=== PATIENT | male | born 1965 | race Caucasian/White ===

== ENCOUNTER 2017-05-23 04:57 | Observation (INO) ==
[2017-05-23 05:46] LABS: Basophils # 0.1 K/mcL (0.0-0.2); Basophils % 1.2 %; Eosinophils # 0.2 K/mcL (0.0-0.6); Eosinophils % 1.7 %; Hemoglobin 17.9 g/dL (12.9-16.9); Immature Granulocytes % 0.3 % (0-4); Lymphocytes # 3.7 K/mcL (0.6-4.6); Lymphocytes % 41.2 %; Mean Corpuscular HGB Conc 33.1 g/dL (31.6-35.5); Mean Corpuscular Hemoglobin 29.4 pg (28.0-33.3); Mean Corpuscular Volume 88.8 fL (83.0-100.0); Mean Platelet Volume 9.7 fL (9.4-12.4); Monocytes # 0.8 K/mcL (0.0-1.3); Monocytes % 9.1 %; Neutrophils # 4.2 K/mcL (1.6-8.9); Platelet Count 261 K/mcL (140-400); Red Blood Count 6.08 M/mcL (4.19-5.50); Red Cell Distribution Width 17.9 % (11.5-14.5); Segmented Neutrophils % 46.5 %
[2017-05-23 05:51] LABS: Acetaminophen < 1.0 mcg/mL (10-30); BUN/Creatinine Ratio 7 (6-26); Blood Urea Nitrogen 7 mg/dL (8-26); Calcium 9.9 mg/dL (8.6-10.8); Carbon Dioxide 18 mEq/L (19-29); Chloride 107 mEq/L (98-109); Ethanol 273 mg/dL (0-10); Glucose 89 mg/dL (70-99); Osmolality,Calculated 285 (280-300); Potassium 3.9 mEq/L (3.5-4.5); Salicylate < 5.0 mg/dL (15-30); Sodium 139 mEq/L (136-145); eGFR For African Americans > 60 (> 60); eGFR For Non-African Americans > 60 (> 60)
[2017-05-23 05:59] LABS: Bilirubin,Urine Negative (Negative); Blood,Urine Negative (Negative); Clarity,Urine Clear (Clear); Color,Urine Yellow (Yellow); Glucose,Urine (UA) Normal (Normal); Ketones,Urine Negative (Negative); Leukocyte Esterase,Urine Negative (Negative); Nitrite,Urine Negative (Negative); Protein,Urine Negative (Neg-Trace); Specific Gravity,Urine 1.012 (1.010-1.025); Urobilinogen,Urine Normal (Normal)
[2017-05-23 06:05] LABS: Amphetamine Screen,Urine Negative ng/mL (Cutoff=1000); Barbiturate Screen,Urine Negative ng/mL (Cutoff=200); Benzodiazepines Screen,Urine Negative ng/mL (Cutoff=200); Cannabinoid Screen,Urine Negative ng/mL (Cutoff = 50); Cocaine Screen,Urine Negative ng/mL (Cutoff= 300); Opiate Screen,Urine Negative ng/mL (Cutoff=300); Phencyclidine Screen,Urine Negative ng/mL (Cutoff=25)
[2017-05-23] MEDS ORDERED: *HR* LORazepam 1 MG TABLET PO ONE (06:58)
--- NOTE | 2017-05-23 07:02 | Emergency Department Note ---
Disposition Clinical Impression: Suicidal ideation Alcohol withdrawal Qualifiers: Complication of substance-induced condition: uncomplicated Qualified Code(s): F10.230 - Alcohol dependence with withdrawal, uncomplicated Depression Qualifiers: Depression Type: other depression Qualified Code(s): F32.89 - Other specified depressive episodes Disposition: Admitted As Inpatient Condition: Good Referrals: NONE,PCP [Primary Care Provider] - Forms: ED Satisfaction Letter Time of Disposition: 18:52 Psych HPI - General Chief Complaint: ED Psychiatric Symptoms Stated Complaint: etoh SI Time Seen by Provider: 05/23/17 06:04 Source: patient Limitations: no limitations Nursing Notes Reviewed: Yes Vital Signs Reviewed: Yes - History of Present Illness HPI Narrative: 51-year-old male presenting to the emergency department with chief complaint of suicidal ideation. He states he is not suicidal multiple times in the past last hospitalization was approximately a year ago. He denies homicidal ideation. He does state he has specific plan he was either going to jump into the river Into traffic. Patient has a long-standing history of alcohol abuse. Blood work and urine completed before I assessed the patient. The patient's ethanol level was 273. Patient states he drinks a sixpack a day. In the room patient is visibly shaking. He states he is concerned he is going through withdrawals. Patient states he does not want to live anymore due to being homeless and having alcohol abuse issue. Patient denies visual or auditory hallucinations at this time. Denies any ingestion other than alcohol prior to arrival. - Related Data Home Medications Medication Instructions Recorded Confirmed Naproxen [Naprosyn] 375 mg PO BID 08/05/15 12/18/15 OLANZapine [Zyprexa Zydis] 30 mg PO HS 08/05/15 12/18/15 HydrOXYzine Pamoate [Vistaril] 25 mg PO TID 12/18/15 12/18/15 Previous Rx's Medication Instructions Recorded LevETIRAcetam [Keppra] 500 mg PO BID #60 tablet 04/21/15 OLANZapine [Zyprexa Zydis] 30 mg PO HS tab.rapdis 08/05/15 Pramoxine [Proctofoam] 15 gm TP TID #1 foam 12/23/15 Naproxen [Naprosyn] 500 mg PO BID 10 Days tablet 02/25/16 Cyclobenzaprine [Flexeril] 10 mg PO TID PRN #9 tablet 06/16/16 predniSONE [Prednisone] 20 mg PO BID #8 tablet 06/16/16 Allergies Allergy/AdvReac Type Severity Reaction Status Date / Time Penicillins [PCN] Allergy See Verified 12/18/15 07:42 Comments lidocaide Allergy Rash Uncoded 05/28/15 07:36 All systems ED: reviewed and negative except as stated. Constitutional: Denies: fever, chills, weakness Eyes: Reports: as per HPI ENT ED: Reports: as per HPI Cardiovascular: Denies: chest pain, palpitations Respiratory: Denies: cough, dyspnea, wheezes Gastrointestinal: Denies: abdominal pain, nausea, vomiting Genitourinary: Reports: as per HPI Musculoskeletal: Reports: as per HPI Integumentary: Reports: as per HPI Neurological: Denies: weakness, numbness, paresthesias Psychiatric: Reports: suicidal thoughts. Denies: homicidal thoughts, auditory hallucinations, visual hallucinations Endocrine: Reports: as per HPI Hematological/Lymphatic: Reports: as per HPI Allergic/Immunologic: Reports: as per HPI Past Medical History - Past Medical History Attestation: Yes The following information was validated with the patient. Medical history: Reports: hepatitis, hypertension, seizures Surgical history: Reports: orthopedic, other Psychiatric history: Reports: bipolar, depression, previous psychiatric hospitalization - Social History Smoking Status: Current every day smoker Smokeless Tobacco Status: No Alcohol use: Reports: none Drug use: Reports: none Physical Exam - General Limitations: no limitations General appearance: alert, in no apparent distress - Head Head exam: atraumatic, normocephalic, normal inspection - Eye Eye exam: Present: normal appearance. Absent: scleral icterus - Chest Chest inspection: Present: normal inspection, symmetric chest wall rise. Absent : tenderness - Respiratory Respiratory exam: Present: normal lung sounds bilaterally. Absent: respiratory distress, wheezes - Cardiovascular Cardiovascular exam: Present: regular rate, normal rhythm, normal heart sounds - Abdominal Exam Abdominal exam: Present: soft, Non-Tender. Absent: distention, guarding, rebound - Extremities Exam Extremities exam: Present: normal inspection, full ROM - Neurological Exam Neurological exam: Present: alert, oriented X3 - Psychiatric Psychiatric exam: Present: suicidal ideation - Skin Skin exam: Present: warm, intact Course Course Narrative: 51-year-old male present emergency department. Suicidal ideation. At this time alcohol was too high to contact psychiatric. We will reassess the patient and wait until he is clinically sober. We will then return to psychiatric services at that time. Disposition pending determining psychiatric results. - Reevaluation(s) Reevaluation #1: Patient spoke with [facility] and they feel that he needs to be admitted for detox support before he is treated in the psychiatric side. Spoke with the hospitalist Kyrie Cdi who agrees to accept the patient at this time. Time: 18:51 Vital Signs Temperature 97.3 F L 05/23/17 04:57 Pulse Rate 78 05/23/17 04:57 Respiratory Rate 20 05/23/17 04:57 Blood Pressure 130/77 05/23/17 04:57 O2 Sat by Pulse Oximetry 95 05/23/17 04:57 Temperature 97.3 F L 05/23/17 04:57 Pulse Rate 75 05/23/17 17:15 Respiratory Rate 16 05/23/17 17:15 Blood Pressure 122/76 05/23/17 17:15 O2 Sat by Pulse Oximetry 96 05/23/17 17:15 Oxygen Delivery Oxygen Delivery Room Air Psych - Lab Data Result diagrams: 05/23/17 05:25 05/23/17 05:25 Lab Results 05/23/17 05/23/17 05/23/17 Range/Units 05:25 05:25 05:45 WBC 9.0 (4.3-11.1) K/mcL RBC 6.08 H (4.19-5.50) M/mcL Hgb 17.9 H (12.9-16.9) g/dL Hct 54.0 H (37.5-50.1) % MCV 88.8 (83.0-100.0) fL MCH 29.4 (28.0-33.3) pg MCHC 33.1 (31.6-35.5) g/dL RDW 17.9 H (11.5-14.5) % Plt Count 261 (140-400) K/mcL MPV 9.7 (9.4-12.4) fL Immature Gran % 0.3 (0-4) % Seg Neutrophils % 46.5 % Lymphocytes % 41.2 % Monocytes % 9.1 % Eosinophils % 1.7 % Basophils % 1.2 % Neutrophils # 4.2 (1.6-8.9) K/mcL Lymphocytes # 3.7 (0.6-4.6) K/mcL Monocytes # 0.8 (0.0-1.3) K/mcL Eosinophils # 0.2 (0.0-0.6) K/mcL Basophils # 0.1 (0.0-0.2) K/mcL Sodium 139 (136-145) mEq/L Potassium 3.9 (3.5-4.5) mEq/L Chloride 107 (98-109) mEq/L Carbon Dioxide 18 L (19-29) mEq/L BUN 7 L (8-26) mg/dL Creatinine 0.97 (0.72-1.25) mg/dL Est GFR ( Amer) > 60 (> 60) Est GFR (Non-Af Amer) > 60 (> 60) BUN/Creatinine Ratio 7 (6-26) Glucose 89 (70-99) mg/dL Calculated Osmolality 285 (280-300) Calcium 9.9 (8.6-10.8) mg/dL Urine Color Yellow (Yellow) Urine Clarity Clear (Clear) Urine pH 6.0 (5.0-8.0) pH Units Ur Specific [place] 1.012 (1.010-1.025) Urine Protein Negative (Neg-Trace) mg/dL Urine Glucose (UA) Normal (Normal) mg/dL Urine Ketones Negative (Negative) mg/dL Urine Blood Negative (Negative) Urine Nitrite Negative (Negative) Urine Bilirubin Negative (Negative) Urine Urobilinogen Normal (Normal) mg/dL Ur Leukocyte Esterase Negative (Negative) Ur Culture Indicated? NO (NO) Salicylates < 5.0 L (15-30) mg/dL Urine Opiates Screen (Dgpfjf=993) ng/mL Acetaminophen < 1.0 L (10-30) mcg/mL Ur Barbiturates Screen (Escjtf=994) ng/mL Ur Phencyclidine Scrn (Cutoff=25) ng/mL Ur Amphetamines Screen (Dcbocc=9318) ng/mL U Benzodiazepines Scrn (Rakggp=670) ng/mL Urine Cocaine Screen (Cutoff= 300) ng/mL U Marijuana (THC) Screen (Cutoff = 50) ng/mL Ethyl Alcohol 273 H (0-10) mg/dL 05/23/17 05/23/17 05/23/17 Range/Units 05:45 12:02 15:47 WBC (4.3-11.1) K/mcL RBC (4.19-5.50) M/mcL Hgb (12.9-16.9) g/dL Hct (37.5-50.1) % MCV (83.0-100.0) fL MCH (28.0-33.3) pg MCHC (31.6-35.5) g/dL RDW (11.5-14.5) % Plt Count (140-400) K/mcL MPV (9.4-12.4) fL Immature Gran % (0-4) % Seg Neutrophils % % Lymphocytes % % Monocytes % % Eosinophils % % Basophils % % Neutrophils # (1.6-8.9) K/mcL Lymphocytes # (0.6-4.6) K/mcL Monocytes # (0.0-1.3) K/mcL Eosinophils # (0.0-0.6) K/mcL Basophils # (0.0-0.2) K/mcL Sodium (136-145) mEq/L Potassium (3.5-4.5) mEq/L Chloride (98-109) mEq/L Carbon Dioxide (19-29) mEq/L BUN (8-26) mg/dL Creatinine (0.72-1.25) mg/dL Est GFR ( Amer) (> 60) Est GFR (Non-Af Amer) (> 60) BUN/Creatinine Ratio (6-26) Glucose (70-99) mg/dL Calculated Osmolality (280-300) Calcium (8.6-10.8) mg/dL Urine Color (Yellow) Urine Clarity (Clear) Urine pH (5.0-8.0) pH Units Ur Specific [place] (1.010-1.025) Urine Protein (Neg-Trace) mg/dL Urine Glucose (UA) (Normal) mg/dL Urine Ketones (Negative) mg/dL Urine Blood (Negative) Urine Nitrite (Negative) Urine Bilirubin (Negative) Urine Urobilinogen (Normal) mg/dL Ur Leukocyte Esterase (Negative) Ur Culture Indicated? (NO) Salicylates (15-30) mg/dL Urine Opiates Screen Negative (Oossta=545) ng/mL Acetaminophen (10-30) mcg/mL Ur Barbiturates Screen Negative (Heyvyv=864) ng/mL Ur Phencyclidine Scrn Negative (Cutoff=25) ng/mL Ur Amphetamines Screen Negative (Ybzxab=3495) ng/mL U Benzodiazepines Scrn Negative (Woorra=548) ng/mL Urine Cocaine Screen Negative (Cutoff= 300) ng/mL U Marijuana (THC) Screen Negative (Cutoff = 50) ng/mL Ethyl Alcohol 129 H 48 H (0-10) mg/dL Psychiatric Medical Clearance - Medical Clearance Checklist Medical History: Depression (Chronic) Suicidal ideation (Acute) Alcohol intoxication (Resolved) Mood disorder (Chronic) Alcohol dependence (Chronic) Cannabis abuse (Acute) Seizure disorder (Chronic) Hepatitis C (Chronic) Alcohol abuse with alcohol-induced mental disorder (Acute) Alcohol abuse (Inactive) Alcohol abuse (Inactive) Alcohol abuse (Inactive) Alcohol use disorder, severe, dependence (Inactive) Anxiety (Inactive) Back pain (Inactive) Back pain (Inactive) Cellulitis (Inactive) Chest pain (Inactive) Dental abscess (Inactive) Encounter for routine adult medical exam with abnormal findings (Inactive) Epileptic seizure (Inactive) Fever (Inactive) Hemorrhoids (Inactive) History of seizure (Inactive) History of seizure disorder (Inactive) Homeless single person (Inactive) Hyponatremia (Inactive) Lumbar back pain (Inactive) Lumbar back sprain (Inactive) Lumbar radiculopathy (Inactive) Medically noncompliant (Inactive) Noncompliance w/medication treatment due to intermit use of medication (Inactive ) Psoriasis (a type of skin inflammation) (Inactive) Rash (Inactive) Seizure (Inactive) Seizure (Inactive) Seizure (Inactive) Seizure (Inactive) Sprain of ligaments of cervical spine (Inactive) Suicidal ideation (Inactive) Urticaria (Inactive) No Social History Section defined Current Vitals: Last Vital Signs Temp 97.3 F L 05/23/17 04:57 Pulse 75 05/23/17 17:15 Resp 16 05/23/17 17:15 BP 122/76 05/23/17 17:15 Pulse Ox 96 05/23/17 17:15 Psychiatric Lab Panel: Drug Levels and Toxicity 05/23/17 05/23/17 05/23/17 05:25 05:45 12:02 Urine Opiates Screen Negative Acetaminophen < 1.0 L Ur Barbiturates Screen Negative Ur Phencyclidine Scrn Negative Ur Amphetamines Screen Negative U Benzodiazepines Scrn Negative Urine Cocaine Screen Negative U Marijuana (THC) Screen Negative Ethyl Alcohol 273 H 129 H 05/23/17 15:47 Urine Opiates Screen Acetaminophen Ur Barbiturates Screen Ur Phencyclidine Scrn Ur Amphetamines Screen U Benzodiazepines Scrn Urine Cocaine Screen U Marijuana (THC) Screen Ethyl Alcohol 48 H Abnormal Labs: Abnormal lab results RBC 6.08 M/mcL (4.19-5.50) H 05/23/17 05:25 Hgb 17.9 g/dL (12.9-16.9) H 05/23/17 05:25 Hct 54.0 % (37.5-50.1) H 05/23/17 05:25 RDW 17.9 % (11.5-14.5) H 05/23/17 05:25 Carbon Dioxide 18 mEq/L (19-29) L 05/23/17 05:25 BUN 7 mg/dL (8-26) L 05/23/17 05:25 Salicylates < 5.0 mg/dL (15-30) L 05/23/17 05:25 Acetaminophen < 1.0 mcg/mL (10-30) L 05/23/17 05:25 Ethyl Alcohol 48 mg/dL (0-10) H 05/23/17 15:47 Statement of Medical Clearance: I have evaluated the patient, reviewed diagnostic information, and certify that the patient's medical condition is sufficiently stable that transfer to the psychiatric unit does not pose a significant risk of deterioration. Attestation Statement - Attestation Attestation: I examined this patient and my medical decision-making was reviewed with the Resident Physician. I agree with the documented findings, disposition and treatment plan as described except to the extent set forth below. Patient to ED with suicidal ideation and alcohol intoxication. Long-standing history of the same. Patient still and is to be and suicidal on my evaluation. Plan. Medical clearance and evaluation by 1A. Patient saw resting comfortably at 1500. Repeat alcohol still pending. The patient medically cleared at this time 1645.
[2017-05-23] MEDS ORDERED: Ondansetron 4 MG/2 ML VIAL IVP PRN (20:49)
[2017-05-23] MEDS ORDERED: Acetaminophen 325 MG TABLET PO PRN (20:49)
[2017-05-23] MEDS ORDERED: Naloxone 0.4 MG/ML INJ IVP PRN (20:49)
[2017-05-23] MEDS ORDERED: *HR* LORazepam 2 MG/ML VIAL IVP PRN ×3 (20:49)
[2017-05-23] MEDS ORDERED: Albuterol 2.5 MG/3 ML NEBULIZER IH PRN (20:53)
--- NOTE | 2017-05-23 20:55 | Internal Med History&Physical ---
Date of Encounter: 05/23/17 Time of Encounter: 20:54 Assessment and Plan (1) Suicidal ideation Current visit: Yes Status: Acute Patient reports active suicidal ideation with the plan, he has had prior suicide ideations, his current state is being driven by major depression, he denies homicidal ideation, will admit for inpatient psychiatry consult, cannot leave AMA until cleared by psychiatry, social work consult regarding his homeless situation (2) Depression Current visit: Yes Status: Chronic Related to alcohol use and homelessness, this is the underlying cause of his suicidal ideation, psychiatry consult appreciated Qualifiers: Depression Type: major depressive disorder Major depression recurrence: recurrent Active/Remission status: currently active Major depression episode severity: severe Psychotic features: without psychotic features Qualified Code(s): F33.2 - Major depressive disorder, recurrent severe without psychotic features (3) Mood disorder Current visit: Yes Status: Chronic Continue home medications (4) Alcohol dependence Current visit: Yes Status: Chronic Significant history of alcohol use and dependency, his alcohol level on admission was 273 in his last drink was about midnight on 05/23, we will institute alcohol withdrawal protocol, he has been counseled on cessation Qualifiers: Substance use status: with intoxication Complication of substance-induced condition: uncomplicated Qualified Code(s): F10.220 - Alcohol dependence with intoxication, uncomplicated (5) Seizure disorder Current visit: Yes Status: Chronic Continue Keppra with aspiration, fall and seizure precautions Internal Medicine - H&P: HPI Chief complaint: wanting to do self harm Admitted From: Emergency Dept Plans for Post Hospital Care: Home History of present illness: Mr. Guzman is a 51 year old male with a history of alcohol dependency and prior suicidal ideation who was brought to the ER via EMS for suicidal ideation. He reports being well until today when he started having ideas about ending his life by jumping in the middle of traffic. Patient is very worried about his homeless situation and he reports this as being the reason why he wants end his life. EMS was called and he told them on arrival that he has had the ideation for about 3 weeks now but they have been worse overnight. He reports active alcohol use, about 6-12 packs of beer daily, denies hot liquor. He reports being sober for about 14 months without any problems but is unable to tell why he went back to drinking. He denies severe withdrawals in the past related to hallucinations, seizures or ICU care. His last alcohol intake was at midnight. Past Med Surg Social Fam HX - Past Medical History Medical history: hepatitis, hypertension, seizures, other Psychiatric history: bipolar, depression, schizophrenia, previous psychiatric hospitalization - Past Surgical History Surgical History: orthopedic, other - Social History Smoking Status: Current every day smoker Smokeless Tobacco Status: No Alcohol use: none Drug use: none - Family History Father Adopted: No Living Status: Mother Adopted: No Living Status: Hx Family Cardiac Disorders: Yes Hx Family Cancer: Yes Hx Family Neurologic Disorders: Yes (3 CVAs over lifetime) Internal Medicine - H&P: Meds LevETIRAcetam [Keppra] 500 mg PO BID #60 tablet 04/21/15 [Rx] HydrOXYzine Pamoate [Vistaril] 50 mg PO TID 12/18/15 [History] Ergocalciferol (VITAMIN D2) [Vitamin D] 400 unit PO DAILY 05/23/17 [History] OLANZapine [Zyprexa] 30 mg PO HS 05/23/17 [History] 3 Allergy/AdvReac Type Severity Reaction Status Date / Time Penicillins [PCN] Allergy See Verified 12/18/15 07:42 Comments lidocaide Allergy Rash Uncoded 05/28/15 07:36 All Systems PM: A 10-system review of systems was performed and is negative for pertinent findings except as documented above in the HPI. - Constitutional Vitals: Temp Pulse Resp BP Pulse Ox 97.4 F L 60 12 152/86 95 05/23/17 20:52 05/23/17 20:52 05/23/17 20:52 05/23/17 20:52 05/23/17 20:52 GENERAL: Adult male, lying in bed, Alert, not in obvious pain or distress HEENT: NC/AT, EOMI, PERRLA, anicteric sclera, normal conjunctiva, supple, clear nares, moist mucous membranes, RESP: Lungs are clear to auscultation bilaterally, with good AE, no crackles or wheeze CARDIO: Normal heart sounds with RRR, no murmurs, no JVD, no ankle edema GI: Soft, full, no tenderness, no organomegaly felt, normal bowel sounds heard MUSCULOSKELETAL: Grossly normal movements bilaterally, no deformities noted, NEUROLOGIC: CN 2-12 intact grossly. No gross motor/sensory deficit appreciated, PSYCHIATRY: AAO x 3. Mood is fair SKIN: no skin rash or ulcers noted Internal Med - H&P Results - Labs CBC & Chem 7: 05/23/17 05:25 05/23/17 05:25
[2017-05-23] MEDS: OLANZapine 10 MG TAB.RAPDIS PO SCH (23:46)
[2017-05-23] MEDS: Nicotine 14 MG PATCH.TD24 TD SCH (23:46)
[2017-05-23] MEDS: hydrOXYzine pamoate 25 MG CAPSULE PO SCH (23:46)
[2017-05-23] MEDS: levETIRAcetam 250 MG TABLET PO SCH (23:46)
[2017-05-24 04:00] LABS: Hematocrit 46.7 % (37.5-50.1); Mean Corpuscular HGB Conc 33.4 g/dL (31.6-35.5); Mean Corpuscular Hemoglobin 29.4 pg (28.0-33.3); Mean Corpuscular Volume 87.9 fL (83.0-100.0); Platelet Count 215 K/mcL (140-400); Red Blood Count 5.31 M/mcL (4.19-5.50); Red Cell Distribution Width 16.8 % (11.5-14.5)
[2017-05-24 04:01] LABS: Hemoglobin 15.6 g/dL (12.9-16.9)
[2017-05-24 04:21] LABS: Alanine Aminotransferase 48 Units/L (0-55); Albumin 3.2 g/dL (3.5-5.0); Albumin/Globulin Ratio 0.9 (1.1-2.2); Alkaline Phosphatase 48 Units/L (38-126); Aspartate Amino Transferase 52 Units/L (5-34); BUN/Creatinine Ratio 15 (6-26); Bilirubin,Total 0.7 mg/dL (0.2-1.2); Blood Urea Nitrogen 11 mg/dL (8-26); Calcium 9.1 mg/dL (8.6-10.8); Carbon Dioxide 23 mEq/L (19-29); Chloride 105 mEq/L (98-109); Globulin 3.7 g/dL (2.4-3.5); Glucose 88 mg/dL (70-99); Magnesium 1.7 mg/dL (1.6-2.6); Osmolality,Calculated 281 (280-300); Phosphorous 2.8 mg/dL (2.3-4.7); Potassium 3.6 mEq/L (3.5-4.5); Sodium 136 mEq/L (136-145); Total Protein 6.9 g/dL (6.0-8.3); eGFR For African Americans > 60 (> 60); eGFR For Non-African Americans > 60 (> 60)
--- NOTE | 2017-05-24 08:16 | Psychiatry History & Physical ---
Date of Encounter: 05/24/17 Time of Encounter: 08:11 History of Present Illness Patient Stated Chief Complaint: suicidal ideation Medicare Admission Attestation: For traditional Medicare patients the provided hospital inpatient services are reasonable and necessary and in the case of services not specified as inpatient -only under 42 CFR 419.22 (n), that they are appropriately provided as inpatient services in accordance 42 CFR 412.3. For Critical Access Hospital the patient may reasonably be expected to be discharged or transferred to a hospital within 96 hours after admission to the Critical Access Hospital. Admitted From: Home Plans for Post Hospital Care: Transfer Inp Rehab Fac History of Present Illness: Mr. Guzman is a 51 year old male who was admitted secondary to SI. Admitted to a medical floor upon arrival due to elevated BAL, recent heavy alcohol use, and history of severe alcohol withdrawal. On eval client denies significant alcohol withdrawal symptoms at this time but reports a history of DTs and seizures. Thirty plus years of heavy drinking. Currently consuming a twelve pack daily. Multiple rehab and sober living attempts. Wants to stop drinking but always returns to it. Denies any other substances of abuse. Homeless. No family supports. Has been living with friends and in shelters. Has historically done well at [facility] and wants to go back there. SI seems tied to AOD use but he does have a historical diagnosis of Bipolar Disorder and suicide attempts. Previous inpatient admissions as well. Follows with an outpatient Psychiatrist in [place], [place] and claims he is prescribed and compliant with Zyprexa. Past Med Surg Social Fam HX - Past Medical History Medical history: hepatitis, hypertension, seizures, other - Past Psychiatric History Psychiatric history: Reports: anxiety, bipolar, prior suicide attempt, previous psychiatric hospitalization Family psychiatric history: Yes Family History of Suicide: None - Past Surgical History Surgical History: orthopedic, other - Social History Smoking Status: Current every day smoker Smokeless Tobacco Status: No Alcohol use: none Drug use: none - Family History Father Adopted: No Living Status: Age at : 64 Cause of : [place] Hx Family Cardiac Disorders: Yes ([place]) Mother Adopted: No Living Status: Hx Family Cardiac Disorders: Yes Hx Family Cancer: Yes Hx Family Neurologic Disorders: Yes (3 CVAs over lifetime) Medications & Allergies LevETIRAcetam [Keppra] 500 mg PO BID #60 tablet 04/21/15 [Rx] HydrOXYzine Pamoate [Vistaril] 50 mg PO TID 12/18/15 [History] Ergocalciferol (VITAMIN D2) [Vitamin D] 400 unit PO DAILY 05/23/17 [History] OLANZapine [Zyprexa] 30 mg PO HS 05/23/17 [History] 3 Allergy/AdvReac Type Severity Reaction Status Date / Time Penicillins [PCN] Allergy See Verified 12/18/15 07:42 Comments lidocaide Allergy Rash Uncoded 05/28/15 07:36 Review of Systems Constitutional: Denies: fever, chills, weakness, weight change Eyes: Denies: eye pain, vision change Ears, Nose, Throat: Denies: ear pain, throat pain, dental pain, hearing loss, congestion Cardiovascular: Denies: chest pain, palpitations, dyspnea on exertion Respiratory: Denies: cough, dyspnea, wheezes Gastrointestinal: Denies: abdominal pain, nausea, vomiting, diarrhea, constipation Genitourinary male: Denies: urgency, dysuria, frequency, genital lesions Genitourinary female: Denies: urgency, dysuria, frequency, abnormal menses, dyspareunia Musculoskeletal: Denies: joint swelling, joint pain Integumentary: Denies: rash, lesions, pruritus Neurological: Denies: headache, weakness, numbness, memory loss Endocrine: Denies: fatigue, heat or cold intolerance Hematologic/Lymphatic: Denies: easy bruising, lymphadenopathy Allergic/Immunologic: Denies: urticaria, itchy eyes Mental Status Exam Patient orientation: Yes Person, Yes Time, Yes Place Level of alertness: Alert Patient appearance: Appropriate Behavior: calm, cooperative Psychomotor activity: Normal Eye contact: Maintains Eye Contact Mood description: Depressed Affect description: congruent with mood Speech pattern: Normal rate, Normal rhythm, Normal tone Speech volume: Normal Thought process: Linear Thought content: Yes Suicidal ideation, No Homicidal ideation, No Overt delusions Perceptual disturbances: No Auditory hallucinations, No Visual hallucinations Attention span: Capable of Focused Attention Memory description: Grossly Intact Patient reliability: Questionable Historian Intelligence estimate: Average Judgment: Limited Insight: Minimal Exam - HEENT Head exam IM: Present: atraumatic Eye exam IM: Present: EOMI ENT exam IM: Present: mucous membranes moist - Neurological Neurological exam IM: Present: alert, oriented X3 - Respiratory Respiratory exam IM: Present: CTAB - GI/Abdominal GI/Abdominal exam IM: Present: normal bowel sounds - Extremities Extremities exam IM: Present: full ROM - Skin Skin exam IM: Present: normal color Results - Vital Signs Vital signs: Temp Pulse Resp BP Pulse Ox 97.9 F 52 16 142/90 95 05/24/17 08:07 05/24/17 08:07 05/24/17 08:07 05/24/17 08:07 05/24/17 08:07 - Labs Labs: Laboratory Last Values WBC 6.7 K/mcL (4.3-11.1) 05/24/17 03:50 RBC 5.31 M/mcL (4.19-5.50) 05/24/17 03:50 Hgb 15.6 g/dL (12.9-16.9) D 05/24/17 03:50 Hct 46.7 % (37.5-50.1) 05/24/17 03:50 MCV 87.9 fL (83.0-100.0) 05/24/17 03:50 MCH 29.4 pg (28.0-33.3) 05/24/17 03:50 MCHC 33.4 g/dL (31.6-35.5) 05/24/17 03:50 RDW 16.8 % (11.5-14.5) H 05/24/17 03:50 Plt Count 215 K/mcL (140-400) 05/24/17 03:50 MPV 10.0 fL (9.4-12.4) 05/24/17 03:50 Immature Gran % 0.3 % (0-4) 05/23/17 05:25 Seg Neutrophils % 46.5 % 05/23/17 05:25 Lymphocytes % 41.2 % 05/23/17 05:25 Monocytes % 9.1 % 05/23/17 05:25 Eosinophils % 1.7 % 05/23/17 05:25 Basophils % 1.2 % 05/23/17 05:25 Neutrophils # 4.2 K/mcL (1.6-8.9) 05/23/17 05:25 Lymphocytes # 3.7 K/mcL (0.6-4.6) 05/23/17 05:25 Monocytes # 0.8 K/mcL (0.0-1.3) 05/23/17 05:25 Eosinophils # 0.2 K/mcL (0.0-0.6) 05/23/17 05:25 Basophils # 0.1 K/mcL (0.0-0.2) 05/23/17 05:25 Sodium 136 mEq/L (136-145) 05/24/17 03:50 Potassium 3.6 mEq/L (3.5-4.5) 05/24/17 03:50 Chloride 105 mEq/L (98-109) 05/24/17 03:50 Carbon Dioxide 23 mEq/L (19-29) 05/24/17 03:50 BUN 11 mg/dL (8-26) 05/24/17 03:50 Creatinine 0.73 mg/dL (0.72-1.25) 05/24/17 03:50 Est GFR ( Amer) > 60 (> 60) 05/24/17 03:50 Est GFR (Non-Af Amer) > 60 (> 60) 05/24/17 03:50 BUN/Creatinine Ratio 15 (6-26) 05/24/17 03:50 Glucose 88 mg/dL (70-99) 05/24/17 03:50 Calculated Osmolality 281 (280-300) 05/24/17 03:50 Calcium 9.1 mg/dL (8.6-10.8) 05/24/17 03:50 Phosphorus 2.8 mg/dL (2.3-4.7) 05/24/17 03:50 Magnesium 1.7 mg/dL (1.6-2.6) 05/24/17 03:50 Total Bilirubin 0.7 mg/dL (0.2-1.2) 05/24/17 03:50 AST 52 Units/L (5-34) H 05/24/17 03:50 ALT 48 Units/L (0-55) 05/24/17 03:50 Alkaline Phosphatase 48 Units/L (38-126) 05/24/17 03:50 Serum Total Protein 6.9 g/dL (6.0-8.3) 05/24/17 03:50 Albumin 3.2 g/dL (3.5-5.0) L 05/24/17 03:50 Globulin 3.7 g/dL (2.4-3.5) H 05/24/17 03:50 Albumin/Globulin Ratio 0.9 (1.1-2.2) L 05/24/17 03:50 Urine Color Yellow (Yellow) 05/23/17 05:45 Urine Clarity Clear (Clear) 05/23/17 05:45 Urine pH 6.0 pH Units (5.0-8.0) 05/23/17 05:45 Ur Specific [place] 1.012 (1.010-1.025) 05/23/17 05:45 Urine Protein Negative mg/dL (Neg-Trace) 05/23/17 05:45 Urine Glucose (UA) Normal mg/dL (Normal) 05/23/17 05:45 Urine Ketones Negative mg/dL (Negative) 05/23/17 05:45 Urine Blood Negative (Negative) 05/23/17 05:45 Urine Nitrite Negative (Negative) 05/23/17 05:45 Urine Bilirubin Negative (Negative) 05/23/17 05:45 Urine Urobilinogen Normal mg/dL (Normal) 05/23/17 05:45 Ur Leukocyte Esterase Negative (Negative) 05/23/17 05:45 Ur Culture Indicated? NO (NO) 05/23/17 05:45 Salicylates < 5.0 mg/dL (15-30) L 05/23/17 05:25 Urine Opiates Screen Negative ng/mL (Srjkdw=374) 05/23/17 05:45 Acetaminophen < 1.0 mcg/mL (10-30) L 05/23/17 05:25 Ur Barbiturates Screen Negative ng/mL (Rwyroa=917) 05/23/17 05:45 Ur Phencyclidine Scrn Negative ng/mL (Cutoff=25) 05/23/17 05:45 Ur Amphetamines Screen Negative ng/mL (Xukeug=1956) 05/23/17 05:45 U Benzodiazepines Scrn Negative ng/mL (Zyqknn=480) 05/23/17 05:45 Urine Cocaine Screen Negative ng/mL (Cutoff= 300) 05/23/17 05:45 U Marijuana (THC) Screen Negative ng/mL (Cutoff = 50) 05/23/17 05:45 Ethyl Alcohol 48 mg/dL (0-10) H 05/23/17 15:47 Assessment and Plan (1) Depression Current visit: Yes Status: Chronic Plan: Admit inpatient for safety and stabilization, Close observation, Suicide Precautions per unit protocol, Encourage participation in unit milieu, Group Therapy, Monitor sleep, Monitor appetite Risks, benefits, side effects, alternatives discussed w/pt: Yes Patient agreeable to treatment: Yes Plans for Post Hospital Care: Transfer Inp Rehab Fac Estimated Length of Stay (Days) : 4 Qualifiers: Depression Type: major depressive disorder Major depression recurrence: recurrent Active/Remission status: currently active Major depression episode severity: severe Psychotic features: without psychotic features Qualified Code(s): F33.2 - Major depressive disorder, recurrent severe without psychotic features
--- NOTE | 2017-05-24 08:20 | Internal Med Progress Note ---
<Alex Shahid - Last Filed: 05/24/17 14:52> Date of Encounter: 05/24/17 Time of Encounter: 08:20 - Assessment and plan (1) Suicidal ideation Current Visit: Yes Status: Acute Assessment and plan: Continues to have suicidal ideation with intent and plan States plans to jump off a bridge or in front of a truck States this is secondary to homelessness Psychiatry on board and dates patient can be transferred after medically stable : alcohol withdrawal (2) Alcohol intoxication Current Visit: Yes Status: Acute Assessment and plan: CIWA 1 no temors on exam. normal HR, denies hallucination continue to monitor continue thiamine, folic acid Qualifiers: Complication of substance-induced condition: uncomplicated Qualified Code(s ): F10.920 - Alcohol use, unspecified with intoxication, uncomplicated (3) Depression Current Visit: Yes Status: Chronic Assessment and plan: Reports SI. psych on board transfer to after stable from alcohol withdrawal. Qualifiers: Depression Type: major depressive disorder Major depression recurrence: recurrent Active/Remission status: currently active Major depression episode severity: severe Psychotic features: without psychotic features Qualified Code(s): F33.2 - Major depressive disorder, recurrent severe without psychotic features (4) Seizure disorder Current Visit: Yes Status: Chronic Assessment and plan: continue keppra. (5) DVT prophylaxis Current Visit: Yes Status: Acute Assessment and plan: Heparin subcutaneous - Subjective Interval history: Admitted for suicidal ideations and alcohol withdrawal. Patient continues to report suicidal ideation with plan of jumping off a bridge and drug or jumping in front of a truck. Patient states initially when he came in he had tremors. Denies confusion, heart palpitations, chest pain, visual or auditory hallucinations. - Constitutional Vitals: Temp Pulse Resp BP Pulse Ox 97.9 F 52 16 142/90 95 05/24/17 08:07 05/24/17 08:07 05/24/17 08:07 05/24/17 08:07 05/24/17 08:07 - Other Additional findings: General: without distress HEENT: Head atraumatic, normocephalic, EOMI, PERRL, Heart: Regular rate and rhythm with no murmur Lungs: Clear to auscultation bilaterally Abdomen: Soft nontender, nondistended positive bowel sounds Skin: warm and dry Extremities: Absent pedal edema, Vascular: Pedal and radial pulses 2 out of 4 Internal Medicine: Result - Labs CBC & Chem 7: 05/24/17 03:50 05/24/17 03:50 Labs: Short CBC 05/24/17 Range/Units 03:50 WBC 6.7 (4.3-11.1) K/mcL Hgb 15.6 D (12.9-16.9) g/dL Hct 46.7 (37.5-50.1) % Plt Count 215 (140-400) K/mcL BMP 05/24/17 03:50 Sodium 136 Potassium 3.6 Chloride 105 Carbon Dioxide 23 BUN 11 Creatinine 0.73 Glucose 88 Calcium 9.1 Liver Function 05/24/17 Range/Units 03:50 Total Bilirubin 0.7 (0.2-1.2) mg/dL AST 52 H (5-34) Units/L ALT 48 (0-55) Units/L Alkaline Phosphatase 48 (38-126) Units/L Albumin 3.2 L (3.5-5.0) g/dL Consult Discharge Plan - Plan Referrals: NONE,PCP [Primary Care Provider] - <Rowdy Charles P - Last Filed: 05/24/17 18:54> Date of Encounter: 05/24/17 - Constitutional Vitals: Temp Pulse Resp BP Pulse Ox 97.6 F 63 15 130/78 96 05/24/17 16:57 05/24/17 16:57 05/24/17 16:57 05/24/17 16:57 05/24/17 16:57 Internal Medicine: Result - Labs CBC & Chem 7: 05/24/17 03:50 05/24/17 03:50 Labs: Short CBC 05/24/17 Range/Units 03:50 WBC 6.7 (4.3-11.1) K/mcL Hgb 15.6 D (12.9-16.9) g/dL Hct 46.7 (37.5-50.1) % Plt Count 215 (140-400) K/mcL BMP 05/24/17 03:50 Sodium 136 Potassium 3.6 Chloride 105 Carbon Dioxide 23 BUN 11 Creatinine 0.73 Glucose 88 Calcium 9.1 Liver Function 05/24/17 Range/Units 03:50 Total Bilirubin 0.7 (0.2-1.2) mg/dL AST 52 H (5-34) Units/L ALT 48 (0-55) Units/L Alkaline Phosphatase 48 (38-126) Units/L Albumin 3.2 L (3.5-5.0) g/dL - Attending Attestation I examined this patient and my medical decision-making was reviewed with the Resident Physician. I agree with the documented findings, disposition and treatment plan as described except to the extent set forth below.
--- NOTE | 2017-05-24 08:21 | Consult Note ---
Date of Encounter: 05/24/17 Time of Encounter: 08:19 Assessment & Recommendation (1) Depression Current visit: Yes Status: Chronic Assessment & Recommendation: Continue home meds for now. Admit to inpatient psych when medically stable from acute withdrawal. Qualifiers: Depression Type: major depressive disorder Major depression recurrence: recurrent Active/Remission status: currently active Major depression episode severity: severe Psychotic features: without psychotic features Qualified Code(s): F33.2 - Major depressive disorder, recurrent severe without psychotic features History of Present Illness Requesting Physician: Ashley Flores CNP Reason for consult: suicidal ideation History of present illness: Mr. Guzman is a 51 year old male who was admitted secondary to SI. Admitted to a medical floor upon arrival due to elevated BAL, recent heavy alcohol use, and history of severe alcohol withdrawal. On eval client denies significant alcohol withdrawal symptoms at this time but reports a history of DTs and seizures. Thirty plus years of heavy drinking. Currently consuming a twelve pack daily. Multiple rehab and sober living attempts. Wants to stop drinking but always returns to it. Denies any other substances of abuse. Homeless. No family supports. Has been living with friends and in shelters. Has historically done well at [facility] and wants to go back there. SI seems tied to AOD use but he does have a historical diagnosis of Bipolar Disorder and suicide attempts. Previous inpatient admissions as well. Follows with an outpatient Psychiatrist in [place], [place] and claims he is prescribed and compliant with Zyprexa. CC: Ashley Flores CNP Past Med Surg Social Fam HX - Past Medical History Medical history: hepatitis, hypertension, seizures, other - Past Psychiatric History Psychiatric history: Reports: anxiety, bipolar, prior suicide attempt, previous psychiatric hospitalization Family psychiatric history: Yes Family History of Suicide: None - Past Surgical History Surgical History: orthopedic, other - Social History Smoking Status: Current every day smoker Smokeless Tobacco Status: No Alcohol use: none Drug use: none - Family History Father Adopted: No Living Status: Age at : 64 Cause of : [place] Hx Family Cardiac Disorders: Yes ([place]) Mother Adopted: No Living Status: Hx Family Cardiac Disorders: Yes Hx Family Cancer: Yes Hx Family Neurologic Disorders: Yes (3 CVAs over lifetime) Medications & Allergies LevETIRAcetam [Keppra] 500 mg PO BID #60 tablet 04/21/15 [Rx] HydrOXYzine Pamoate [Vistaril] 50 mg PO TID 12/18/15 [History] Ergocalciferol (VITAMIN D2) [Vitamin D] 400 unit PO DAILY 05/23/17 [History] OLANZapine [Zyprexa] 30 mg PO HS 05/23/17 [History] 3 Allergy/AdvReac Type Severity Reaction Status Date / Time Penicillins [PCN] Allergy See Verified 12/18/15 07:42 Comments lidocaide Allergy Rash Uncoded 05/28/15 07:36 Review of Systems Constitutional: Denies: fever, chills, weakness, weight change Eyes: Denies: eye pain, vision change Ears, Nose, Throat: Denies: ear pain, throat pain, dental pain, hearing loss, congestion Cardiovascular: Denies: chest pain, palpitations, dyspnea on exertion Respiratory: Denies: cough, dyspnea, wheezes Gastrointestinal: Denies: abdominal pain, nausea, vomiting, diarrhea, constipation Genitourinary male: Denies: urgency, dysuria, frequency, genital lesions Genitourinary female: Denies: urgency, dysuria, frequency, abnormal menses, dyspareunia Musculoskeletal: Denies: joint swelling, joint pain Integumentary: Denies: rash, lesions, pruritus Neurological: Denies: headache, weakness, numbness, memory loss Endocrine: Denies: fatigue, heat or cold intolerance Hematologic/Lymphatic: Denies: easy bruising, lymphadenopathy Allergic/Immunologic: Denies: urticaria, itchy eyes Mental Status Exam Patient orientation: Yes Person, Yes Time, Yes Place Level of alertness: Alert Patient appearance: Appropriate Behavior: calm, cooperative Psychomotor activity: Normal Eye contact: Maintains Eye Contact Mood description: Depressed Affect description: congruent with mood Speech pattern: Normal rate, Normal rhythm, Normal tone Speech volume: Normal Thought process: Linear Thought content: Yes Suicidal ideation, No Homicidal ideation, No Overt delusions Perceptual disturbances: No Auditory hallucinations, No Visual hallucinations Attention span: Capable of Focused Attention Memory description: Grossly Intact Patient reliability: Questionable Historian Intelligence estimate: Average Judgment: Limited Insight: Minimal Results - Vital Signs Vital signs: Temp Pulse Resp BP Pulse Ox 97.9 F 52 16 142/90 95 05/24/17 08:07 05/24/17 08:07 05/24/17 08:07 05/24/17 08:07 05/24/17 08:07 - Labs Labs: Laboratory Last Values WBC 6.7 K/mcL (4.3-11.1) 05/24/17 03:50 RBC 5.31 M/mcL (4.19-5.50) 05/24/17 03:50 Hgb 15.6 g/dL (12.9-16.9) D 05/24/17 03:50 Hct 46.7 % (37.5-50.1) 05/24/17 03:50 MCV 87.9 fL (83.0-100.0) 05/24/17 03:50 MCH 29.4 pg (28.0-33.3) 05/24/17 03:50 MCHC 33.4 g/dL (31.6-35.5) 05/24/17 03:50 RDW 16.8 % (11.5-14.5) H 05/24/17 03:50 Plt Count 215 K/mcL (140-400) 05/24/17 03:50 MPV 10.0 fL (9.4-12.4) 05/24/17 03:50 Immature Gran % 0.3 % (0-4) 05/23/17 05:25 Seg Neutrophils % 46.5 % 05/23/17 05:25 Lymphocytes % 41.2 % 05/23/17 05:25 Monocytes % 9.1 % 05/23/17 05:25 Eosinophils % 1.7 % 05/23/17 05:25 Basophils % 1.2 % 05/23/17 05:25 Neutrophils # 4.2 K/mcL (1.6-8.9) 05/23/17 05:25 Lymphocytes # 3.7 K/mcL (0.6-4.6) 05/23/17 05:25 Monocytes # 0.8 K/mcL (0.0-1.3) 05/23/17 05:25 Eosinophils # 0.2 K/mcL (0.0-0.6) 05/23/17 05:25 Basophils # 0.1 K/mcL (0.0-0.2) 05/23/17 05:25 Sodium 136 mEq/L (136-145) 05/24/17 03:50 Potassium 3.6 mEq/L (3.5-4.5) 05/24/17 03:50 Chloride 105 mEq/L (98-109) 05/24/17 03:50 Carbon Dioxide 23 mEq/L (19-29) 05/24/17 03:50 BUN 11 mg/dL (8-26) 05/24/17 03:50 Creatinine 0.73 mg/dL (0.72-1.25) 05/24/17 03:50 Est GFR ( Amer) > 60 (> 60) 05/24/17 03:50 Est GFR (Non-Af Amer) > 60 (> 60) 05/24/17 03:50 BUN/Creatinine Ratio 15 (6-26) 05/24/17 03:50 Glucose 88 mg/dL (70-99) 05/24/17 03:50 Calculated Osmolality 281 (280-300) 05/24/17 03:50 Calcium 9.1 mg/dL (8.6-10.8) 05/24/17 03:50 Phosphorus 2.8 mg/dL (2.3-4.7) 05/24/17 03:50 Magnesium 1.7 mg/dL (1.6-2.6) 05/24/17 03:50 Total Bilirubin 0.7 mg/dL (0.2-1.2) 05/24/17 03:50 AST 52 Units/L (5-34) H 05/24/17 03:50 ALT 48 Units/L (0-55) 05/24/17 03:50 Alkaline Phosphatase 48 Units/L (38-126) 05/24/17 03:50 Serum Total Protein 6.9 g/dL (6.0-8.3) 05/24/17 03:50 Albumin 3.2 g/dL (3.5-5.0) L 05/24/17 03:50 Globulin 3.7 g/dL (2.4-3.5) H 05/24/17 03:50 Albumin/Globulin Ratio 0.9 (1.1-2.2) L 05/24/17 03:50 Urine Color Yellow (Yellow) 05/23/17 05:45 Urine Clarity Clear (Clear) 05/23/17 05:45 Urine pH 6.0 pH Units (5.0-8.0) 05/23/17 05:45 Ur Specific [place] 1.012 (1.010-1.025) 05/23/17 05:45 Urine Protein Negative mg/dL (Neg-Trace) 05/23/17 05:45 Urine Glucose (UA) Normal mg/dL (Normal) 05/23/17 05:45 Urine Ketones Negative mg/dL (Negative) 05/23/17 05:45 Urine Blood Negative (Negative) 05/23/17 05:45 Urine Nitrite Negative (Negative) 05/23/17 05:45 Urine Bilirubin Negative (Negative) 05/23/17 05:45 Urine Urobilinogen Normal mg/dL (Normal) 05/23/17 05:45 Ur Leukocyte Esterase Negative (Negative) 05/23/17 05:45 Ur Culture Indicated? NO (NO) 05/23/17 05:45 Salicylates < 5.0 mg/dL (15-30) L 05/23/17 05:25 Urine Opiates Screen Negative ng/mL (Hnaggu=918) 05/23/17 05:45 Acetaminophen < 1.0 mcg/mL (10-30) L 05/23/17 05:25 Ur Barbiturates Screen Negative ng/mL (Yfqsgc=969) 05/23/17 05:45 Ur Phencyclidine Scrn Negative ng/mL (Cutoff=25) 05/23/17 05:45 Ur Amphetamines Screen Negative ng/mL (Bqfkxc=2334) 05/23/17 05:45 U Benzodiazepines Scrn Negative ng/mL (Snnpcn=761) 05/23/17 05:45 Urine Cocaine Screen Negative ng/mL (Cutoff= 300) 05/23/17 05:45 U Marijuana (THC) Screen Negative ng/mL (Cutoff = 50) 05/23/17 05:45 Ethyl Alcohol 48 mg/dL (0-10) H 05/23/17 15:47 Consult Discharge Plan - Plan Referrals: NONE,PCP [Primary Care Provider] -
[2017-05-24] MEDS: Folic Acid 1 MG TABLET PO SCH (09:17)
[2017-05-24] MEDS: Thiamine (B-1) 100 MG TABLET PO SCH (09:17)
[2017-05-24] MEDS: hydrOXYzine pamoate 25 MG CAPSULE PO SCH ×3 (09:17→20:02)
[2017-05-24] MEDS: Cholecalciferol (D-3) 1,000 UNIT TABLET PO SCH (09:17)
[2017-05-24] MEDS: Vitamin B Complex/Vit C/Vit E 1 EACH TABLET PO SCH (09:17)
[2017-05-24] MEDS: levETIRAcetam 250 MG TABLET PO SCH ×2 (09:18→20:02)
[2017-05-24] MEDS: Nicotine 14 MG PATCH.TD24 TD SCH (09:18)
[2017-05-24] MEDS: 0.9 % Sodium Chloride 1,000 ML IVC SCH ×2 (10:31→22:08)
[2017-05-24] MEDS: *HR* Heparin 5,000 UNIT/ML VIAL SQ SCH ×2 (14:14→20:01)
[2017-05-24] MEDS ORDERED: Thiamine (B-1) 100 MG, Folic Acid 1 MG, MVI, adult with vitamin K 10 ML in 0.9 % Sodi... IVPB SCH (18:00)
[2017-05-24] MEDS: OLANZapine 10 MG TAB.RAPDIS PO SCH (20:02)
[2017-05-25] MEDS: 0.9 % Sodium Chloride 1,000 ML IVC SCH (01:26)
[2017-05-25] MEDS: *HR* Heparin 5,000 UNIT/ML VIAL SQ SCH (05:48)
--- NOTE | 2017-05-25 07:10 | Internal Med Progress Note ---
Date of Encounter: 05/25/17 - Assessment and plan (1) Suicidal ideation Current Visit: Yes Status: Acute (2) Alcohol intoxication Current Visit: Yes Status: Acute Qualifiers: Complication of substance-induced condition: uncomplicated Qualified Code(s ): F10.920 - Alcohol use, unspecified with intoxication, uncomplicated (3) Depression Current Visit: Yes Status: Chronic Qualifiers: Depression Type: major depressive disorder Major depression recurrence: recurrent Active/Remission status: currently active Major depression episode severity: severe Psychotic features: without psychotic features Qualified Code(s): F33.2 - Major depressive disorder, recurrent severe without psychotic features (4) Seizure disorder Current Visit: Yes Status: Chronic (5) DVT prophylaxis Current Visit: Yes Status: Acute - Subjective Interval history: Admitted for suicidal ideations and alcohol withdrawal. Patient continues to report suicidal ideation with plan of jumping off a bridge and drug or jumping in front of a truck. Patient states initially when he came in he had tremors. Denies confusion, heart palpitations, chest pain, visual or auditory hallucinations. - Constitutional Vitals: Temp Pulse Resp BP Pulse Ox 98 F 61 16 134/88 96 05/25/17 03:21 05/25/17 03:21 05/25/17 03:21 05/25/17 03:21 05/25/17 03:21 Internal Medicine: Result - Labs CBC & Chem 7: 05/24/17 03:50 05/24/17 03:50 Consult Discharge Plan - Plan Referrals: NONE,PCP [Primary Care Provider] -
[2017-05-25] MEDS: Folic Acid 1 MG TABLET PO SCH (09:40)
[2017-05-25] MEDS: levETIRAcetam 250 MG TABLET PO SCH (09:40)
[2017-05-25] MEDS: Cholecalciferol (D-3) 1,000 UNIT TABLET PO SCH (09:40)
[2017-05-25] MEDS: Nicotine 14 MG PATCH.TD24 TD SCH (09:40)
[2017-05-25] MEDS: Vitamin B Complex/Vit C/Vit E 1 EACH TABLET PO SCH (09:41)
[2017-05-25] MEDS: Thiamine (B-1) 100 MG TABLET PO SCH (09:41)
[2017-05-25] MEDS: hydrOXYzine pamoate 25 MG CAPSULE PO SCH (09:41)
[2017-05-25 11:18] VITALS: BP 124/70
--- NOTE | 2017-05-25 11:57 | Discharge Summary ---
<Alex Shahid - Last Filed: 05/25/17 14:46> Date of Encounter: 05/25/17 Time of Encounter: 11:55 - Discharge Diagnosis (1) Suicidal ideation Priority: Primary Status: Acute (2) Alcohol intoxication Priority: Secondary Status: Acute Qualifiers: Complication of substance-induced condition: uncomplicated Qualified Code(s ): F10.920 - Alcohol use, unspecified with intoxication, uncomplicated (3) Depression Priority: Secondary Status: Chronic Qualifiers: Depression Type: major depressive disorder Major depression recurrence: recurrent Active/Remission status: currently active Major depression episode severity: severe Psychotic features: without psychotic features Qualified Code(s): F33.2 - Major depressive disorder, recurrent severe without psychotic features (4) Seizure disorder Priority: Secondary Status: Chronic (5) DVT prophylaxis Priority: Secondary Status: Acute - Discharge Medications Home Medications: LevETIRAcetam [Keppra] 500 mg PO BID #60 tablet 04/21/15 [Rx] HydrOXYzine Pamoate [Vistaril] 50 mg PO TID 12/18/15 [History] Ergocalciferol (VITAMIN D2) [Vitamin D] 400 unit PO DAILY 05/23/17 [History] OLANZapine [Zyprexa] 30 mg PO HS 05/23/17 [History] Folic Acid 1 mg PO DAILY 05/25/17 [History] Vitamin B Complex/Vit C/Vit E [Stresstab] 1 each PO DAILY 05/25/17 [History] Allergies/Adverse Reactions: 3 Allergy/AdvReac Type Severity Reaction Status Date / Time Penicillins [PCN] Allergy See Verified 12/18/15 07:42 Comments lidocaide Allergy Rash Uncoded 05/28/15 07:36 Date of admission: 05/23/17 19:06 Primary care physician: PCP NONE Consults: 05/23/17 20:49 Consult to Psychiatry [CONS] Routine Consulting Provider: Psychiatry [facility] Reason for Consult: pls assist in managing pt with SI, thanks Call Completed: No Consult to Ear Nose And Throat Specialist [CONS] Routine Reason for SW Consult: pls assist with homeless situation, regarding housing options, thanks Discharging clinician: Alex Shahid Anticipated date of discharge: 05/25/17 - Patient Status Disposition: Transfer Psychiatric Hosp Condition: Good Functional capacity at discharge: independent ambulation Overall status at discharge: patient is progressing back to baseline - Discharge Instructions Instructions: Suicide Prevention for Adults (DC) Follow Up With: NONE,PCP [Primary Care Provider] - - Diet and Activity Activity: increase activity as tolerated Diet: advance to your usual diet Interval History: 54-year-old male admitted for suicidal ideation. Patient stated that he is homeless and because of that has thoughts of jumping off a bridge or jumping from a truck. Patient also states that he drinks 6-12 beers every day. His alcohol was elevated at 273. Psychiatry evaluated patient and stated he can be transferred to psychiatric unit after medically stable. Patient was given IV fluids, thiamine, folic acid. Patient was put on CIWA protocol. On admission patient had evidence of tremors however they resolved during the first 24 hours. Thereafter patient's CIWA score has been 1. He was monitored for 48 hours and did not have symptoms of confusion, palpitations, hypertension, diaphoresis, hallucinations, delirium tremens. Patient is able to tolerate diet , ambulatory. He will be transferred to psychiatric unit for further care. Hospital course: Mr. Guzman is a 51 year old male - Time Spent with Patient Total time spent providing and/or coordinating discharge services: - Constitutional Vitals: Temp Pulse Resp BP Pulse Ox 97.7 F 56 16 124/70 98 05/25/17 11:17 05/25/17 11:17 05/25/17 11:17 05/25/17 11:17 05/25/17 09:00 General appearance: Present: A&O X 3 - Head Head exam: Present: atraumatic, normocephalic - Eye Eye exam: Present: PERRL, conjuntiva pink, sclera anicteric - Neck Neck exam general surgery: Present: supple, trachea midline. Absent: lymphadenopathy - Respiratory Respiratory exam: Present: CTAB. Absent: accessory muscle use, rales, rhonchi, wheezes - Cardiovascular Cardiovascular exam: Present: RRR, +S1, +S2. Absent: diastolic murmur, gallop, rubs, systolic murmur - GI/Abdominal GI/Abdominal exam: Present: normal bowel sounds, soft, no peritoneal signs. Absent: distended, tenderness - Extremities Exam Extremities exam: Present: warm, radial pulses palpable and symmetrical. Absent : calf tenderness, cyanotic, pedal edema - Neurological Exam Neurological exam: Present: CN II-XII intact, oriented X3, no focal deficits. Absent: pronater drift, facial droop, speech deficit - Skin Skin exam: Present: dry, intact <Araceli,Rowdy P - Last Filed: 05/25/17 19:06> Date of Encounter: 05/25/17 Date of admission: 05/23/17 19:06 Primary care physician: PCP NONE Consults: 05/23/17 20:49 Consult to Psychiatry [CONS] Routine Consulting Provider: Psychiatry [place] Reason for Consult: pls assist in managing pt with SI, thanks Call Completed: No Consult to Ear Nose And Throat Specialist [CONS] Routine Reason for SW Consult: pls assist with homeless situation, regarding housing options, thanks Hospital course: Mr. Guzman is a 51 year old male - Time Spent with Patient Total time spent providing and/or coordinating discharge services: - Constitutional Vitals: Temp Pulse Resp BP Pulse Ox 97.7 F 56 16 124/70 98 05/25/17 11:17 05/25/17 11:17 05/25/17 11:17 05/25/17 11:17 05/25/17 09:00 - Attending Attestation I examined this patient and my medical decision-making was reviewed with the Resident Physician. I agree with the documented findings, disposition and treatment plan as described except to the extent set forth below.
== END 2017-05-25 14:00 ==
LOC: EMEROO 04:57 → 3BNU 04:57
PROVIDERS: ADMIT Internal Medicine; ATTEND Registered Nurse

== ENCOUNTER 2017-05-25 13:43 | Inpatient (IN) ==
[2017-05-25] MEDS ORDERED: *HR* LORazepam 2 MG/ML VIAL IM PRN (14:04)
[2017-05-25] MEDS ORDERED: Mag Hydrox/Al Hydrox/Simeth 30 ML UDC PO PRN (14:04)
[2017-05-25] MEDS ORDERED: Haloperidol Lactate 5 MG/ML VIAL IM PRN (14:04)
[2017-05-25] MEDS ORDERED: Ibuprofen 400 MG TABLET PO PRN (14:04)
[2017-05-25] MEDS ORDERED: *HR* LORazepam 1 MG TABLET PO PRN (14:04)
[2017-05-25] MEDS: hydrOXYzine pamoate 25 MG CAPSULE PO SCH ×2 (16:23→20:59)
[2017-05-25] MEDS: levETIRAcetam 250 MG TABLET PO SCH (20:59)
[2017-05-25] MEDS ORDERED: MOM Conc 10 ML UD.LIQ PO PRN (21:00)
[2017-05-25] MEDS ORDERED: OLANZapine 10 MG TAB.RAPDIS PO SCH (21:00)
[2017-05-25] MEDS ORDERED: traZODone 50 MG TABLET PO PRN (21:00)
[2017-05-26] MEDS: Vitamin B Complex/Vit C/Vit E 1 EACH TABLET PO SCH (08:45)
[2017-05-26] MEDS: hydrOXYzine pamoate 25 MG CAPSULE PO SCH ×3 (08:46→21:40)
[2017-05-26] MEDS: Folic Acid 1 MG TABLET PO SCH (08:46)
[2017-05-26] MEDS: levETIRAcetam 250 MG TABLET PO SCH ×2 (08:46→21:40)
[2017-05-26] MEDS: Cholecalciferol (D-3) 1,000 UNIT TABLET PO SCH (08:46)
[2017-05-26] MEDS: Nicotine 14 MG PATCH.TD24 TD SCH (08:47)
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
[2017-05-26] MEDS: Mirtazapine 15 MG TABLET PO SCH (21:40)
[2017-05-27] MEDS: hydrOXYzine pamoate 25 MG CAPSULE PO SCH ×3 (09:02→20:18)
[2017-05-27] MEDS: Folic Acid 1 MG TABLET PO SCH (09:02)
[2017-05-27] MEDS: levETIRAcetam 250 MG TABLET PO SCH ×2 (09:03→20:18)
[2017-05-27] MEDS: Nicotine 14 MG PATCH.TD24 TD SCH (09:03)
[2017-05-27] MEDS: Cholecalciferol (D-3) 1,000 UNIT TABLET PO SCH (09:04)
[2017-05-27] MEDS: Vitamin B Complex/Vit C/Vit E 1 EACH TABLET PO SCH (09:04)
--- NOTE | 2017-05-27 11:06 | Psychiatry Progress Note ---
Date of Encounter: 05/27/17 Time of Encounter: 10:03 Subjective Interval history: Patient seen and interviewed. Started to notice improvement in his mood. Suicidal ideation has started to subside. Patient still appears flat and dysphoric. Endorsing some hopeless helpless feelings. Tolerating medication changes fairly well. I encouraged the patient to attend groups and work on a safety plan. Review of Systems Psychiatric: Reports: depression, anhedonia, hopelessness Objective: Exam Patient orientation: Yes Person, Yes Time, Yes Place Level of alertness: Alert Patient appearance: Unkempt Behavior: cooperative, withdrawn Psychomotor activity: Slowed Eye contact: Maintains Eye Contact Mood description: Depressed Affect description: flat, dysphoric Speech pattern: Slowed Speech volume: Normal Thought process: Linear, Goal Oriented Thought content: No Suicidal ideation, No Homicidal ideation, No Overt delusions Perceptual disturbances: No Auditory hallucinations, No Visual hallucinations Judgment: Fair Insight: Partial Results - Vital Signs Vital Signs: Temp Pulse Resp BP 96.9 F L 62 17 121/75 05/26/17 20:00 05/26/17 20:00 05/26/17 20:00 05/26/17 20:00 Assessment and Plan (1) MDD (major depressive disorder), recurrent severe, without psychosis Current visit: Yes Status: Acute Plan: Continue hospitalization, Close observation, Suicide Precautions per unit protocol, Encourage participation in unit milieu, Group Therapy, Monitor sleep, Monitor appetite Risks, benefits, side effects, alternatives discussed w/pt: Yes Patient agreeable to treatment: Yes (2) Alcohol dependence Current visit: No Status: Chronic Plan: Continue hospitalization, Close observation, Suicide Precautions per unit protocol, Encourage participation in unit milieu, Group Therapy, Monitor sleep, Monitor appetite Risks, benefits, side effects, alternatives discussed w/pt: Yes Patient agreeable to treatment: Yes Qualifiers: Substance use status: in withdrawal Complication of substance-induced condition: uncomplicated Qualified Code(s): F10.230 - Alcohol dependence with withdrawal, uncomplicated
[2017-05-27] MEDS: Mirtazapine 15 MG TABLET PO SCH (20:18)
[2017-05-28] MEDS: Nicotine 14 MG PATCH.TD24 TD SCH (09:21)
[2017-05-28] MEDS: Vitamin B Complex/Vit C/Vit E 1 EACH TABLET PO SCH (09:22)
[2017-05-28] MEDS: Folic Acid 1 MG TABLET PO SCH (09:22)
[2017-05-28] MEDS: hydrOXYzine pamoate 25 MG CAPSULE PO SCH ×3 (09:22→21:01)
[2017-05-28] MEDS: Cholecalciferol (D-3) 1,000 UNIT TABLET PO SCH (09:22)
[2017-05-28] MEDS: levETIRAcetam 250 MG TABLET PO SCH ×2 (09:25→21:00)
--- NOTE | 2017-05-28 12:10 | Psychiatry Progress Note ---
Date of Encounter: 05/28/17 Time of Encounter: 08:40 Subjective Interval history: Pernell is seen today for follow-up of his depression and alcohol dependence. Patient reports he is starting to feel better. He does admit that the idea of being homeless does make him feel like he wants to . At present he does not have a place to stay but is looking into some options. This does make him more hopeful about the future. He would like to stay off alcohol because he states that he was sober for almost 8.5 months. He is not sleeping well at present. He states that the Remeron does not help him sleep. He also states that he did better when he was taking Zyprexa or Seroquel with his mood. He is willing to try new antidepressants for his mood as well as any medications that may help with his sleep. Patient reports difficulty falling and staying asleep. Review of Systems Psychiatric: Reports: depression, anxiety, abnormal sleep pattern, anhedonia, hopelessness Objective: Exam Patient orientation: Yes Person, Yes Time, Yes Place Level of alertness: Alert Patient appearance: Appropriate Behavior: calm, cooperative Psychomotor activity: Normal Eye contact: Minimal Contact Mood description: Euthymic/stable Affect description: full range Speech pattern: Normal rate, Normal rhythm Speech volume: Normal Thought process: Intact, Goal Oriented Thought content: Yes Suicidal ideation (conditional) Perceptual disturbances: No Auditory hallucinations, No Visual hallucinations Judgment: Limited Insight: Partial Results - Vital Signs Vital Signs: Temp Pulse Resp BP 97.7 F 62 24 137/86 05/28/17 08:00 05/28/17 08:00 05/28/17 08:00 05/28/17 08:00 Assessment and Plan (1) Depression Current visit: No Status: Chronic Plan: Continue hospitalization, Close observation, Suicide Precautions per unit protocol, Encourage participation in unit milieu, Group Therapy, Monitor sleep, Monitor appetite Additional Plan: Patient still voicing some conditional suicidal ideation. We will coordinate a safe discharge plan for patient so he has a place to stay. We will start Lexapro for depression symptoms. And discontinue Remeron. Restart Seroquel at low dosage at bedtime for sleep and mood. Encourage patient to attend group and unit activities. Qualifiers: Depression Type: major depressive disorder Major depression recurrence: recurrent Active/Remission status: currently active Major depression episode severity: severe Psychotic features: without psychotic features Qualified Code(s): F33.2 - Major depressive disorder, recurrent severe without psychotic features (2) Alcohol dependence Current visit: No Status: Chronic Plan: Continue hospitalization, Close observation, Suicide Precautions per unit protocol, Encourage participation in unit milieu, Group Therapy, Monitor sleep, Monitor appetite Additional Plan: Encouraged patient to continue substance abuse treatment and discontinue alcohol use at this exacerbates his mental health conditions. Risks, benefits, side effects, alternatives discussed w/pt: Yes Patient agreeable to treatment: Yes Qualifiers: Substance use status: in withdrawal Complication of substance-induced condition: uncomplicated Qualified Code(s): F10.230 - Alcohol dependence with withdrawal, uncomplicated Consult Discharge Plan - Plan Referrals: NONE,PCP [Primary Care Provider] -
[2017-05-29] MEDS: Cholecalciferol (D-3) 1,000 UNIT TABLET PO SCH (08:40)
[2017-05-29] MEDS: Vitamin B Complex/Vit C/Vit E 1 EACH TABLET PO SCH (08:40)
[2017-05-29] MEDS: hydrOXYzine pamoate 25 MG CAPSULE PO SCH ×3 (08:40→20:48)
[2017-05-29] MEDS: Folic Acid 1 MG TABLET PO SCH (08:40)
[2017-05-29] MEDS: levETIRAcetam 250 MG TABLET PO SCH ×2 (08:42→20:49)
[2017-05-29] MEDS: Nicotine 14 MG PATCH.TD24 TD SCH (08:43)
--- NOTE | 2017-05-29 12:59 | Psychiatry Progress Note ---
Date of Encounter: 05/29/17 Time of Encounter: 12:00 Subjective Interval history: Pernell is seen today for follow-up of his mood and anxiety symptoms. He reports he did not sleep well last night. He did restart the Seroquel and he denies side effects but states that the medication did not allow him to stay asleep throughout the night. He woke up around 3 AM and have trouble getting back to sleep. Other than sleep issues patient reports he is doing better. He is more hopeful for the future. The plan will be for him to go to the [facility] tomorrow. He denies SI or HI. He denies appetite issues. He is attending some group and unit activities. Review of Systems Psychiatric: Reports: depression, anxiety, abnormal sleep pattern Objective: Exam Patient orientation: Yes Person, Yes Time, Yes Place Level of alertness: Alert Patient appearance: Appropriate, Well Groomed Behavior: calm, cooperative Psychomotor activity: Normal Eye contact: Maintains Eye Contact Mood description: Euthymic/stable Affect description: congruent with mood Speech pattern: Normal rate, Normal rhythm, Normal tone Speech volume: Normal Thought process: Intact, Linear, Goal Oriented Thought content: No Suicidal ideation, No Homicidal ideation, No Overt delusions Perceptual disturbances: No Auditory hallucinations, No Visual hallucinations Judgment: Limited Insight: Partial Results - Vital Signs Vital Signs: Temp Pulse Resp BP 97.5 F L 18 58 132/89 05/29/17 08:00 05/29/17 08:00 05/29/17 08:00 05/29/17 08:00 Assessment and Plan (1) Depression Current visit: No Status: Chronic Plan: Continue hospitalization, Close observation, Suicide Precautions per unit protocol, Encourage participation in unit milieu, Group Therapy, Monitor sleep, Monitor appetite Additional Plan: Increase Seroquel to 200 mg by mouth daily at bedtime. Encourage positive coping strategies and appropriate sleep hygiene. Plan for discharge tomorrow if patient remains stable. Qualifiers: Depression Type: major depressive disorder Major depression recurrence: recurrent Active/Remission status: currently active Major depression episode severity: severe Psychotic features: without psychotic features Qualified Code(s): F33.2 - Major depressive disorder, recurrent severe without psychotic features (2) Alcohol dependence Current visit: No Status: Chronic Plan: Continue hospitalization, Close observation, Encourage participation in unit milieu, Group Therapy, Monitor sleep, Monitor appetite Additional Plan: Encouraged patient to continue substance abuse treatment and discontinue alcohol use at this exacerbates his mental health conditions. Risks, benefits, side effects, alternatives discussed w/pt: Yes Patient agreeable to treatment: Yes Qualifiers: Substance use status: in withdrawal Complication of substance-induced condition: uncomplicated Qualified Code(s): F10.230 - Alcohol dependence with withdrawal, uncomplicated Consult Discharge Plan - Plan Referrals: NONE,PCP [Primary Care Provider] -
--- NOTE | 2017-05-30 08:54 | Discharge Summary ---
Date of Encounter: 05/30/17 Time of Encounter: 08:00 Diagnosis - Discharge Diagnosis (1) Depression Priority: Primary Status: Chronic Qualifiers: Depression Type: major depressive disorder Major depression recurrence: recurrent Active/Remission status: currently active Major depression episode severity: severe Psychotic features: without psychotic features Qualified Code(s): F33.2 - Major depressive disorder, recurrent severe without psychotic features (2) Alcohol dependence Priority: Secondary Status: Chronic Qualifiers: Substance use status: in withdrawal Complication of substance-induced condition: uncomplicated Qualified Code(s): F10.230 - Alcohol dependence with withdrawal, uncomplicated Medications - Discharge Medications LevETIRAcetam [Keppra] 500 mg PO BID #60 tablet 04/21/15 [Rx] Ergocalciferol (VITAMIN D2) [Vitamin D] 400 unit PO DAILY 05/23/17 [History] Folic Acid 1 mg PO DAILY 05/25/17 [History] Vitamin B Complex/Vit C/Vit E [Stresstab] 1 each PO DAILY 05/25/17 [History] Escitalopram [Lexapro] 10 mg PO DAILY tablet 05/30/17 [Rx] Quetiapine Fumarate [Seroquel] 200 mg PO HS tablet 05/30/17 [Rx] hydrOXYzine pamoate [HydrOXYzine Pamoate] 50 mg PO TID capsule 05/30/17 [Rx] 3 Allergy/AdvReac Type Severity Reaction Status Date / Time Penicillins [PCN] Allergy See Verified 12/18/15 07:42 Comments lidocaide Allergy Rash Uncoded 05/28/15 07:36 Provider Date of admission: 05/25/17 13:43 Primary care physician: PCP NONE Discharging clinician: Fauzia Lagos Assessment and Plan - Patient/Caregiver Discharge Instructions Activity: resume usual activities as tolerated Diet: regular diet - Follow up Plan [facility] ([facility] staff will arrange all of your mental health and substance abuse follow-up appointments after your arrival.) Functional capacity at discharge: independent ambulation Overall status at discharge: Stable Disposition: Transfer Other Hospital Course Hospital course: Mr. Guzman is a 51 year old male with a history of depression and alcohol dependence who presented to the hospital with suicidal ideations because he was homeless. Patient was admitted to for psychiatric stabilization. He was incorporated into the therapeutic milieu and offer group and individual as well as recreational therapy area and he was also offered psychoeducational materials and supportive therapy. He was placed on suicide precautions and close observation per unit protocol. Patient was started on Seroquel and Lexapro for his mood and sleep issues. He was monitored for alcohol withdrawal. Throughout the course of the hospital stay the patient's mood improved. He was hopeful to find housing somewhere when he is discharged. Patient did participate in group and unit activities while on the unit. He is interested in continuing to abstain from alcohol on discharge. He did have 8 and a half months sober prior to a recent relapse. At the time of discharge he denied suicidal or homicidal ideation, intent, or plan. He is willing to take his medications as prescribed and follow-up as an outpatient. He is discharged stable condition. - Time Spent with Patient Total time spent providing and/or coordinating discharge services: Less than 30 minutes Quality - Multiple Antipsychotics Patient discharged on 2 or more antipsychotic medications: No Procedures - Procedures Procedures: Medication Management, Crisis Stabilization, Supportive Therapy, Group Therapy, Psychoeducational Therapy Mental Status Exam - Mental Status Exam Patient orientation: Yes Person, Yes Time, Yes Place Level of alertness: Alert Patient appearance: Appropriate, Well Groomed Behavior: calm, cooperative Psychomotor activity: Normal Eye contact: Maintains Eye Contact Mood description: Euthymic/stable Affect description: congruent with mood, full range Speech pattern: Normal rate, Normal rhythm, Normal tone Speech Volume: Normal Thought process: Linear, Goal Oriented Thought Content: No Suicidal ideation, No Homicidal ideation, No Overt delusions Perceptual Disturbances: No Auditory hallucinations, No Visual hallucinations Judgment: Limited Insight: Partial
[2017-05-30] MEDS: Nicotine 14 MG PATCH.TD24 TD SCH (09:15)
[2017-05-30] MEDS: levETIRAcetam 250 MG TABLET PO SCH (09:15)
[2017-05-30] MEDS: Vitamin B Complex/Vit C/Vit E 1 EACH TABLET PO SCH (09:15)
[2017-05-30] MEDS: hydrOXYzine pamoate 25 MG CAPSULE PO SCH (09:15)
[2017-05-30] MEDS: Cholecalciferol (D-3) 1,000 UNIT TABLET PO SCH (09:15)
[2017-05-30] MEDS: Folic Acid 1 MG TABLET PO SCH (09:16)
[2017-05-30 11:23] VITALS: BP 126/82
== END 2017-05-30 12:40 | disposition other institution (70) | DRG 751 ==
LOC: 1ANU 13:43 → SUATTDRO 13:43
PROVIDERS: ADMIT Psychiatry & Neurology Psychiatry; ATTEND Student in an Organized Health Care Education/Training Program